=== PATIENT | male | born 1975 | race Caucasian/White ===

== ENCOUNTER 2024-03-11 19:49 | Inpatient (IN) | payer OTHER ==
[~2024-03-11] VITALS: Ht 175.3 cm; Wt 146.6 kg
[2024-03-11 20:35] VITALS: BP 130/99; TEMP 98.2; O2SAT 95
[2024-03-11] MEDS ORDERED: HYDROMORPHONE 1 MG/1 ML DISP.SYRIN IV PRN (21:30)
[2024-03-11] MEDS ORDERED: Z GUARD REMEDY 4 OZ OINT TP PRN (21:30)
[2024-03-11] MEDS ORDERED: ONDANSETRON HCL/PF 4 MG/2 ML VIAL IVP PRN (21:30)
[2024-03-11] MEDS: IV NS 0.9% 1,000 ML IV PRN (21:37)
[2024-03-11] MEDS: HYDROMORPHONE INJ 2 MG/ML DISP.SYRIN IV PRN (21:56)
[2024-03-12] MEDS: HYDROMORPHONE INJ 2 MG/ML DISP.SYRIN IV PRN ×2 (00:56→11:15)
[2024-03-12 04:00] VITALS: BP 132/91; TEMP 97.3; O2SAT 97
[2024-03-12] MEDS: HYDROMORPHONE 1 MG/1 ML DISP.SYRIN IV STA (06:01)
[2024-03-12 06:15] LABS: BASOPHILS % (AUTO) 0.1 % (0.0-2.0); HEMATOCRIT 48 % (39-51); HEMOGLOBIN 16.5 g/dL (13.5-17.5); LYMPHOCYTES # (AUTO) 1.1 K/uL (0.8-4.8); LYMPHOCYTES % (AUTO) 7.8 % (20.0-44.0); MEAN CORPUSCULAR HEMOGLOBIN 30 PG (26.0-33.0); MEAN CORPUSCULAR HGB CONC 34 g/dl (31.0-36.0); MEAN CORPUSCULAR VOLUME 87 fL (80-96); MONOCYTES # (AUTO) 0.8 K/uL (0.1-1.30); MONOCYTES % (AUTO) 5.5 % (2.0-12.0); NEUTROPHILS # (AUTO) 11.9 K/uL (1.8-8.9); NEUTROPHILS % (AUTO) 86.6 % (43.0-81.0); PLATELET COUNT (AUTO) 288 K/uL (150-450); RED BLOOD CELL COUNT(AUTO) 5.56 MIL/uL (4.5-6.0); RED CELL DISTRIBUTION WIDTH 14.8 % (11.5-15.0); WHITE BLOOD COUNT (AUTO) 13.8 K/uL (4.3-11.0)
[2024-03-12 06:28] LABS: ALANINE AMINOTRANSFERASE 443 U/L (12-78); ALBUMIN 3.7 g/dL (3.4-5.0); ALKALINE PHOSPHATASE 151 U/L (46-116); ASPARTATE AMINOTRANSFERASE 172 U/L (15-37); BILIRUBIN,DIRECT 0.4 mg/dL (0.0-0.2); BILIRUBIN,TOTAL 1.4 mg/dL (0.2-1.0); CALCIUM, SERUM 8.5 mg/dL (8.5-10.1); CARBON DIOXIDE 24 mmol/L (21-32); CHLORIDE 109 mmol/L (98-107); CHOLESTEROL 185 mg/dL (<200); CREATININE 0.9 mg/dL (0.6-1.3); GLUCOSE 145 mg/dL (74-106); HDL CHOLESTEROL 46 mg/dL (40-60); LDL 117 mg/dL (0-99); MAGNESIUM 2.3 mg/dL (1.8-2.4); PHOSPHORUS 3.2 mg/dL (2.5-4.9); POTASSIUM 3.7 mmol/L (3.5-5.1); SODIUM SERUM 143 mmol/L (136-145); TOTAL PROTEIN, SERUM 7.6 g/dL (6.4-8.2); TRIGLYCERIDES 90 mg/dL (30-150); UREA NITROGEN, BLOOD 21 mg/dL (7-18)
[2024-03-12 06:46] LABS: AMYLASE 2029 U/L (25-115)
[2024-03-12 06:48] LABS: LIPASE > 375 U/L (16-77)
[2024-03-12 07:00] VITALS: BP 116/83; TEMP 98.2; O2SAT 94
[2024-03-12] MEDS: PANTOPRAZOLE 40 MG VIAL IV SCH (08:14)
[2024-03-12] MEDS ORDERED: HYDROCODONE/APAP 10/325MG TABLET PO PRN (09:30)
[2024-03-12] MEDS ORDERED: KETOROLAC TROMETHAMINE INJ 30 MG/ML VIAL IM PRN (11:30)
[2024-03-12 12:00] VITALS: BP 132/97; TEMP 98.2; O2SAT 94
[2024-03-12 16:00] VITALS: BP 127/104; TEMP 98.2; O2SAT 94
[2024-03-12] MEDS: MEROPENEM 1 G in IV NS 0.9% 100 ML IV SCH (16:24)
[2024-03-12 19:50] VITALS: BP 133/99; TEMP 99; O2SAT 94
[2024-03-13 06:56] LABS: BASOPHILS % (AUTO) 0.2 % (0.0-2.0); HEMATOCRIT 43 % (39-51); HEMOGLOBIN 14.6 g/dL (13.5-17.5); LYMPHOCYTES # (AUTO) 2.3 K/uL (0.8-4.8); LYMPHOCYTES % (AUTO) 13.9 % (20.0-44.0); MEAN CORPUSCULAR HEMOGLOBIN 30 PG (26.0-33.0); MEAN CORPUSCULAR HGB CONC 34 g/dl (31.0-36.0); MEAN CORPUSCULAR VOLUME 89 fL (80-96); MONOCYTES # (AUTO) 1.1 K/uL (0.1-1.30); MONOCYTES % (AUTO) 6.6 % (2.0-12.0); NEUTROPHILS # (AUTO) 13.1 K/uL (1.8-8.9); NEUTROPHILS % (AUTO) 79.3 % (43.0-81.0); PLATELET COUNT (AUTO) 238 K/uL (150-450); RED BLOOD CELL COUNT(AUTO) 4.86 MIL/uL (4.5-6.0); RED CELL DISTRIBUTION WIDTH 14.7 % (11.5-15.0); WHITE BLOOD COUNT (AUTO) 16.6 K/uL (4.3-11.0)
[2024-03-13 07:10] LABS: ALANINE AMINOTRANSFERASE 207 U/L (12-78); ALBUMIN 3.1 g/dL (3.4-5.0); ALKALINE PHOSPHATASE 98 U/L (46-116); ASPARTATE AMINOTRANSFERASE 49 U/L (15-37); BILIRUBIN,TOTAL 1.6 mg/dL (0.2-1.0); CARBON DIOXIDE 28 mmol/L (21-32); CHLORIDE 103 mmol/L (98-107); GLUCOSE 118 mg/dL (74-106); MAGNESIUM 2.4 mg/dL (1.8-2.4); PHOSPHORUS 2.1 mg/dL (2.5-4.9); POTASSIUM 3.2 mmol/L (3.5-5.1); SODIUM SERUM 139 mmol/L (136-145); TOTAL PROTEIN, SERUM 6.7 g/dL (6.4-8.2); UREA NITROGEN, BLOOD 18 mg/dL (7-18)
[2024-03-13 08:00] VITALS: BP 122/80; TEMP 99; O2SAT 99
[2024-03-13 08:07] LABS: LIPASE > 375 U/L (16-77)
[2024-03-13] MEDS: HYDROCODONE/APAP 10/325MG TABLET PO PRN (09:13)
[2024-03-13] MEDS: POTASSIUM CL. PREMIX PERIPHER. 50 ML IV SCH (09:46)
[2024-03-13] MEDS: ENOXAPARIN SODIUM 40 MG/0.4 ML DISP.SYRIN SQ SCH (10:49)
[2024-03-13 12:06] VITALS: BP 92/63; TEMP 97.8; O2SAT 95
[2024-03-13] MEDS: NEUTRA PHOS 1 POWD.PACKET PO ONE (12:08)
[2024-03-13] MEDS: MEROPENEM 1 G in IV NS 0.9% 100 ML IV SCH (13:00)
[2024-03-13] MEDS: HYDROMORPHONE INJ 2 MG/ML DISP.SYRIN IM STA (16:21)
[2024-03-13] MEDS: HYDROMORPHONE INJ 2 MG/ML DISP.SYRIN IV STA (16:50)
[2024-03-13] MEDS ORDERED: IOHEXOL-300 100 ML VIAL IV ONE (17:39)
[2024-03-13] MEDS ORDERED: IV NS 0.9% 250 ML IV ONE (17:39)
[2024-03-13 20:00] VITALS: BP 122/82; TEMP 99.9; O2SAT 94
[2024-03-14 07:16] LABS: CALCIUM, SERUM 7.4 mg/dL (8.5-10.1); CREATININE 0.7 mg/dL (0.6-1.3); POTASSIUM 3.4 mmol/L (3.5-5.1)
[2024-03-14 08:00] VITALS: BP 129/88; TEMP 98; O2SAT 94
[2024-03-14] MEDS: POTASSIUM CHLORIDE 20 MEQ TAB.PRT.SR PO SCH (09:57)
[2024-03-14 12:10] LABS: BILIRUBIN,DIRECT 0.4 mg/dL (0.0-0.2); BILIRUBIN,TOTAL 1.5 mg/dL (0.2-1.0); TOTAL PROTEIN, SERUM 6.8 g/dL (6.4-8.2)
[2024-03-14 16:04] VITALS: BP 109/78; TEMP 98.6; O2SAT 92
[2024-03-14] MEDS: IV LR 1000 ML 1,000 ML IV PRN (17:41)
[2024-03-14 20:04] VITALS: BP 130/85; TEMP 98.2; O2SAT 100
[2024-03-14 20:08] VITALS: BP 130/85; TEMP 98.2; O2SAT 100
[2024-03-15] VITALS (8 sets, daily range): BP systolic 113–139; BP diastolic 82–97; TEMP 98.1–98.4; O2SAT 94–97
[2024-03-15 07:18] LABS: CALCIUM, SERUM 7.9 mg/dL (8.5-10.1); CREATININE 0.6 mg/dL (0.6-1.3); POTASSIUM 3.2 mmol/L (3.5-5.1)
[2024-03-15 08:40] LABS: BASOPHILS % (AUTO) 0.2 % (0.0-2.0); EOSINOPHILS % (AUTO) 0.2 % (0.0-6.0); HEMATOCRIT 39 % (39-51); HEMOGLOBIN 13.6 g/dL (13.5-17.5); LYMPHOCYTES # (AUTO) 1.1 K/uL (0.8-4.8); LYMPHOCYTES % (AUTO) 11.1 % (20.0-44.0); MEAN CORPUSCULAR HEMOGLOBIN 30 PG (26.0-33.0); MEAN CORPUSCULAR HGB CONC 35 g/dl (31.0-36.0); MEAN CORPUSCULAR VOLUME 88 fL (80-96); MONOCYTES # (AUTO) 0.8 K/uL (0.1-1.30); MONOCYTES % (AUTO) 8.8 % (2.0-12.0); NEUTROPHILS # (AUTO) 7.7 K/uL (1.8-8.9); NEUTROPHILS % (AUTO) 79.7 % (43.0-81.0); PLATELET COUNT (AUTO) 226 K/uL (150-450); RED BLOOD CELL COUNT(AUTO) 4.48 MIL/uL (4.5-6.0); RED CELL DISTRIBUTION WIDTH 13.7 % (11.5-15.0); WHITE BLOOD COUNT (AUTO) 9.6 K/uL (4.3-11.0)
[2024-03-15] MEDS: PANTOPRAZOLE 40 MG TABLET.DR PO SCH (08:50)
[2024-03-15] MEDS: POTASSIUM CHLORIDE 20 MEQ TAB.PRT.SR PO SCH (09:39)
[2024-03-15 11:01] LABS: ALBUMIN 2.7 g/dL (3.4-5.0); BILIRUBIN,DIRECT 3.6 mg/dL (0.0-0.2); BILIRUBIN,TOTAL 5.3 mg/dL (0.2-1.0); TOTAL PROTEIN, SERUM 6.5 g/dL (6.4-8.2)
[2024-03-16] VITALS: BP 111/74; TEMP 98.4; O2SAT 95
[2024-03-16 04:00] VITALS: BP 134/90; TEMP 98.8; O2SAT 96
[2024-03-16 06:28] LABS: BASOPHILS % (AUTO) 0.2 % (0.0-2.0); EOSINOPHILS % (AUTO) 0.4 % (0.0-6.0); HEMATOCRIT 37 % (39-51); HEMOGLOBIN 12.5 g/dL (13.5-17.5); LYMPHOCYTES # (AUTO) 1.4 K/uL (0.8-4.8); LYMPHOCYTES % (AUTO) 13.2 % (20.0-44.0); MEAN CORPUSCULAR HEMOGLOBIN 30 PG (26.0-33.0); MEAN CORPUSCULAR HGB CONC 34 g/dl (31.0-36.0); MEAN CORPUSCULAR VOLUME 87 fL (80-96); MONOCYTES # (AUTO) 0.9 K/uL (0.1-1.30); MONOCYTES % (AUTO) 8.1 % (2.0-12.0); NEUTROPHILS # (AUTO) 8.4 K/uL (1.8-8.9); NEUTROPHILS % (AUTO) 78.1 % (43.0-81.0); PLATELET COUNT (AUTO) 244 K/uL (150-450); RED BLOOD CELL COUNT(AUTO) 4.21 MIL/uL (4.5-6.0); RED CELL DISTRIBUTION WIDTH 13.4 % (11.5-15.0); WHITE BLOOD COUNT (AUTO) 10.8 K/uL (4.3-11.0)
[2024-03-16 06:43] LABS: CALCIUM, SERUM 8.1 mg/dL (8.5-10.1); CREATININE 0.6 mg/dL (0.6-1.3); POTASSIUM 3.4 mmol/L (3.5-5.1)
[2024-03-16 06:45] LABS: ALBUMIN 2.7 g/dL (3.4-5.0); BILIRUBIN,DIRECT 1.1 mg/dL (0.0-0.2); BILIRUBIN,TOTAL 2.2 mg/dL (0.2-1.0); TOTAL PROTEIN, SERUM 6.5 g/dL (6.4-8.2)
[2024-03-16 08:00] VITALS: BP 133/92; TEMP 98.4; O2SAT 97
[2024-03-16] MEDS: POTASSIUM CHLORIDE 20 MEQ TAB.PRT.SR PO ONE (11:33)
[2024-03-16 16:00] VITALS: BP 122/85; TEMP 98.1; O2SAT 97
[2024-03-16 21:09] VITALS: BP 116/86; TEMP 98.6; O2SAT 98
[2024-03-16 21:40] VITALS: BP 122/75
[2024-03-17 02:50] VITALS: BP 112/80
[2024-03-17 06:23] LABS: BASOPHILS % (AUTO) 0.2 % (0.0-2.0); EOSINOPHILS % (AUTO) 0.4 % (0.0-6.0); HEMATOCRIT 36 % (39-51); HEMOGLOBIN 12.5 g/dL (13.5-17.5); LYMPHOCYTES # (AUTO) 1.4 K/uL (0.8-4.8); LYMPHOCYTES % (AUTO) 13.6 % (20.0-44.0); MEAN CORPUSCULAR HEMOGLOBIN 30 PG (26.0-33.0); MEAN CORPUSCULAR HGB CONC 34 g/dl (31.0-36.0); MEAN CORPUSCULAR VOLUME 87 fL (80-96); MONOCYTES % (AUTO) 9.4 % (2.0-12.0); NEUTROPHILS # (AUTO) 7.8 K/uL (1.8-8.9); NEUTROPHILS % (AUTO) 76.4 % (43.0-81.0); PLATELET COUNT (AUTO) 244 K/uL (150-450); RED BLOOD CELL COUNT(AUTO) 4.17 MIL/uL (4.5-6.0); RED CELL DISTRIBUTION WIDTH 13.7 % (11.5-15.0); WHITE BLOOD COUNT (AUTO) 10.2 K/uL (4.3-11.0)
[2024-03-17 06:50] LABS: ALBUMIN 2.3 g/dL (3.4-5.0); BILIRUBIN,DIRECT 0.6 mg/dL (0.0-0.2); BILIRUBIN,TOTAL 1.3 mg/dL (0.2-1.0); TOTAL PROTEIN, SERUM 5.9 g/dL (6.4-8.2)
[2024-03-17 06:52] LABS: CALCIUM, SERUM 8.2 mg/dL (8.5-10.1); CREATININE 0.6 mg/dL (0.6-1.3); POTASSIUM 3.4 mmol/L (3.5-5.1)
[2024-03-17 08:00] VITALS: BP 113/67; TEMP 98.6; O2SAT 95
[2024-03-17] MEDS: POTASSIUM CHLORIDE 20 MEQ TAB.PRT.SR PO SCH (09:33)
[2024-03-17] MEDS: oxyCODONE/APAP (5/325 MG) 1 UDTAB TABLET PO ONE (12:16)
[2024-03-17] MEDS ORDERED: oxyCODONE/APAP (5/325 MG) 1 UDTAB TABLET PO PRN (12:30)
[2024-03-17] MEDS: HYDROMORPHONE INJ 2 MG/ML DISP.SYRIN IV PRN (13:27)
[2024-03-17 16:00] VITALS: BP 125/87; TEMP 98.2; O2SAT 95
== END 2024-03-17 21:14 | disposition short-term general hospital (02) | DRG 282 ==
LOC: MED 20:27 → TELE 03-14 15:17 → MED 03-16 11:56
PROVIDERS: ADMIT Nurse Practitioner Family; ATTEND Internal Medicine
DX: K85.10 Biliary acute pancreatitis without necrosis or infection (principal); E66.01 Morbid (severe) obesity due to excess calories; Z68.42 Body mass index [BMI] 45.0-49.9, adult; E87.6 Hypokalemia; K86.1 Other chronic pancreatitis; Z91.199 Patient's noncompliance with other medical treatment and regimen due to unspecified reason; E80.6 Other disorders of bilirubin metabolism
CPT/HCPCS: 36415; 74170-TC; 76700-TC; 80048-TC; 80053-TC; 80061-TC; 80076-TC; 82150-TC; 83605-TC; 83690-TC; 83735-TC; 84100-TC; 85025-TC; 87081-TC; A4223; A6253; G0378; J1171; J1650; J2185; J2470; J3480; J7030; J7050; J7070; J7120; Q9967